=== PATIENT | male | born 1990 | race Caucasian/White ===

== ENCOUNTER 2017-05-15 10:43 | Emergency (ER) | payer OTHER ==
[2017-05-15] MEDS: 0.9 % SODIUM CHLORIDE 1,000 ML BAG IV ONE (11:51)
[2017-05-15 12:01] LABS: HEMATOCRIT 36.9 % (42.0-52.0); HEMOGLOBIN 12.4 gm/dl (14.0-18.0); MEAN CELL VOLUME 87.4 fl (81-97); MEAN CORPUSCULAR HGB CONC 33.6 g/dl (32-36); MEAN PLATELET VOLUME 9.9 fl (7.4-10.4); PLATELET COUNT 223 K/uL (130-400); RED BLOOD COUNT 4.22 M/uL (4.40-5.70); RED CELL DISTRIBUTION WIDTH 12.9 % (11.5-14.5); WHITE BLOOD COUNT W/O DIFF 11.1 K/uL (4.2-12.2)
[2017-05-15 12:06] LABS: MEAN CORPUSCULAR HEMOGLOBIN 29.3 pg (27-33)
[2017-05-15] MEDS: KETOROLAC 30 MG/ML VIAL IVP ONE (12:09)
[2017-05-15 12:13] LABS: ALBUMIN 4.9 gm/dL (3.5-5.0); ALKALINE PHOSPHATASE 65 U/L (38-126); ALT/SGPT 36 U/L (21-72); ANION GAP 12.6 (7-16); AST/SGOT 30 U/L (17-59); BILIRUBIN,TOTAL 1.16 mg/dL (0.2-1.3); BLOOD UREA NITROGEN 14 mg/dL (9-20); CARBON DIOXIDE 24.4 mmol/L (22-30); CREATININE 0.9 mg/dL (0.66-1.25); EST GLOMERULAR FILTRATION RATE > 60 ml/min; GLUCOSE,RANDOM 88 mg/dL (70-110); TOTAL PROTEIN 8.6 gm/dL (6.3-8.2)
--- NOTE | 2017-05-15 12:29 | Emergency Department Record ---
History of Present Illness - General Chief complaint: Throat foreign body Stated complaint: SORE THROAT Time Seen by Provider: 05/15/17 11:06 Source: Patient Mode of Arrival: Ambulatory - History of Present Illness Initial comments: sick 3 days and [facility] and thought to be a virus. fever tuesday night and body aches. complaint: Sore throat Onset/Timin -: Week(s) Location: Throat Severity: Moderate Severity scale (1-10): 9 Quality: Aching Consistency: Constant Improves with: None Worsens with: None - Related Data Previous Rx's Medication Instructions Recorded Cephalexin [Keflex] 500 mg PO TID #30 cap 05/15/17 Allergies Allergy/AdvReac Type Severity Reaction Status Date / Time No Known Drug Allergies Allergy Verified 05/15/17 11:01 Travel Screening - Travel/Exposure Within Last 30 Days Have you traveled within the last 30 days?: No - Travel/Exposure Within Last Year Have you traveled outside the [place] in the last year?: No - Additonal Travel Details Have you been exposed to anyone with a communicable illness?: No - Travel Symptoms Symptom Screening: None Review of Systems Reviewed: No additional complaints except as noted below Constitutional: Reports: As per HPI, Fever. Denies: Chills, Malaise, Night sweats, Weakness, Weight change Eyes: Reports: As per HPI. Denies: Eye discharge, Eye pain, Photophobia, Vision change ENT: Reports: As per HPI, Throat pain. Denies: Congestion, Dental pain, Ear pain, Epistaxis, Hearing loss Respiratory: Reports: As per HPI, Cough. Denies: Dyspnea, Hemoptysis, Stridor, Wheezes Cardiovascular: Reports: As per HPI. Denies: Arrhythmia, Chest pain, Dyspnea on exertion, Edema, Murmurs, Orthopnea, Palpitations, Paroxysmal nocturnal dyspnea, Rheumatic Fever, Syncope Endocrine: Reports: As per HPI. Denies: Fatigue, Heat or cold intolerance, Polydipsia, Polyuria Gastrointestinal: Reports: As per HPI. Denies: Abdominal pain, Constipation, Diarrhea, Hematemesis, Hematochezia, Melena, Nausea, Vomiting Genitourinary: Reports: As per HPI. Denies: Dysuria, Frequency, Hematuria, Incontinence, Retention, Testicular pain, Testicular mass, Urgency Musculoskeletal: Reports: As per HPI. Denies: Arthralgia, Back pain, Gout, Joint swelling, Myalgia, Neck pain Skin: Reports: As per HPI. Denies: Bruising, Change in color, Change in hair/ nails, Lesions, Pruritus, Rash Neurological: Reports: As per HPI. Denies: Abnormal gait, Confusion, Headache, Numbness, Paresthesias, Seizure, Tingling, Tremors, Vertigo, Weakness Psychiatric: Reports: As per HPI. Denies: Anxiety, Auditory hallucinations, Depression, Homicidal thoughts, Suicidal thoughts, Visual hallucinations Hematological/Lymphatic: Reports: As per HPI. 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 negative: External canal tenderness Nasal Exam: Normal inspection. negative: Discharge, Sinus tenderness Mouth exam: Normal external inspection, Tongue normal Teeth exam: Normal inspection. negative: Dental caries Throat exam: Tonsillar erythema, Tonsillar exudate - Neck Neck exam: Normal inspection, Full ROM. negative: Tenderness - Respiratory Respiratory exam: Normal lung sounds bilaterally. negative: Respiratory distress - Cardiovascular Cardiovascular Exam: Regular rate, Normal rhythm, Normal heart sounds - GI/Abdominal GI/Abdominal exam: Soft, Normal bowel sounds. negative: Tenderness - Rectal Rectal exam: Deferred - exam: Deferred - Extremities Extremities exam: Normal inspection, Full ROM, Normal capillary refill. negative: Tenderness - Back Back exam: Reports: Normal inspection, Full ROM. Denies: Muscle spasm, Rash noted, Tenderness - Neurological Neurological exam: Alert, Normal gait, Oriented X3, Reflexes normal - Psychiatric Psychiatric exam: Normal affect, Normal mood - Skin Skin exam: Dry, Intact, Normal color, Warm Course Vital Signs 05/15/17 10:54 Temperature 100.8 F H Pulse Rate 99 H Respiratory 17 Rate Blood Pressure 149/84 Pulse Ox 100 Medical Decision Making - Lab Data Result diagrams: 05/15/17 11:41 05/15/17 11:41 Lab Results 05/15/17 05/15/17 05/15/17 Range/Units 11:25 11:41 11:41 WBC 11.1 (4.2-12.2) K/uL RBC 4.22 L (4.40-5.70) M/uL Hgb 12.4 L (14.0-18.0) gm/dl Hct 36.9 L (42.0-52.0) % MCV 87.4 (81-97) fl MCH 29.3 (27-33) pg MCHC 33.6 (32-36) g/dl RDW 12.9 (11.5-14.5) % Plt Count 223 (130-400) K/uL MPV 9.9 (7.4-10.4) fl Neutrophils % 83.0 H (47-80) % Band Neutrophils % 0.0 (0-5) % Eosinophils % Not Reportable Basophils % Not Reportable Lymphocytes 6.0 L (16-45) % Monocytes 11.0 H (0-9) % Basophils 0.0 (0-6) % Eosinophil Count 0.0 (0-6) % Sodium 137 (136-145) mmol/L Potassium 4.3 (3.5-5.1) mmol/L Chloride 100 (98-107) mmol/L Carbon Dioxide 24.4 (22-30) mmol/L Anion Gap 12.6 (7-16) BUN 14 (9-20) mg/dL Creatinine 0.9 (0.66-1.25) mg/dL Estimated GFR > 60 ml/min Random Glucose 88 (70-110) mg/dL Calcium 9.5 (8.5-10.1) mg/dL Total Bilirubin 1.16 (0.2-1.3) mg/dL Direct Bilirubin 0.0 (0-0.3) mg/dL AST 30 (17-59) U/L ALT 36 (21-72) U/L Alkaline Phosphatase 65 (38-126) U/L Total Protein 8.6 H (6.3-8.2) gm/dL Albumin 4.9 (3.5-5.0) gm/dL Monoscreen (NEGATIVE) Group A Strep Screen Negative (NEGATIVE) 05/15/17 Range/Units 11:41 WBC (4.2-12.2) K/uL RBC (4.40-5.70) M/uL Hgb (14.0-18.0) gm/dl Hct (42.0-52.0) % MCV (81-97) fl MCH (27-33) pg MCHC (32-36) g/dl RDW (11.5-14.5) % Plt Count (130-400) K/uL MPV (7.4-10.4) fl Neutrophils % (47-80) % Band Neutrophils % (0-5) % Eosinophils % Basophils % Lymphocytes (16-45) % Monocytes (0-9) % Basophils (0-6) % Eosinophil Count (0-6) % Sodium (136-145) mmol/L Potassium (3.5-5.1) mmol/L Chloride (98-107) mmol/L Carbon Dioxide (22-30) mmol/L Anion Gap (7-16) BUN (9-20) mg/dL Creatinine (0.66-1.25) mg/dL Estimated GFR ml/min Random Glucose (70-110) mg/dL Calcium (8.5-10.1) mg/dL Total Bilirubin (0.2-1.3) mg/dL Direct Bilirubin (0-0.3) mg/dL AST (17-59) U/L ALT (21-72) U/L Alkaline Phosphatase (38-126) U/L Total Protein (6.3-8.2) gm/dL Albumin (3.5-5.0) gm/dL Monoscreen Negative (NEGATIVE) Group A Strep Screen (NEGATIVE) Disposition Clinical Impression: Pharyngitis Qualifiers: Pharyngitis/tonsillitis etiology: unspecified etiology Qualified Code(s): J02.9 - Acute pharyngitis, unspecified Disposition: Home, Self-Care Condition: (1) Good Instructions: Pharyngitis (ED) Additional Instructions: follow up with family in 2 days Prescriptions: Cephalexin [Keflex] 500 mg PO TID #30 cap Forms: Patient Portal Access Time of Disposition: 13:05 Quality - Quality Measures Quality Measures: N/A - Blood Pressure Screening Does Patient Have Any of the Following: No Blood Pressure Classification: Pre-Hypertensive BP Reading Systolic Measurement: 149 Diastolic Measurement: 84 Screening for High Blood Pressure: < Pre-Hypertensive BP, F/U Documented > [ G8950] Pre-Hypertensive Follow-up Interventions: Referral to alternative/primary care provider.
--- NOTE | 2017-05-17 09:51 | RADIOLOGY REPORT ---
EXAM: CHEST, TWO VIEWS HISTORY: PATIENT HAS COUGH AND FEVER. TECHNIQUE: Two views of the chest are provided without comparison studies. FINDINGS: The cardiomediastinal silhouette is within normal limits for size and contour. The madeline appear unremarkable. There is no radiographic evidence of a focal infiltrate or pleural effusion. IMPRESSION: NO RADIOGRAPHIC EVIDENCE OF AN ACUTE INTRATHORACIC PROCESS. JOB NUMBER: [id number] MTDD
== END 2017-05-15 13:23 | disposition home or self-care (01) ==
LOC: ER 10:43
DX: J02.9 Acute pharyngitis, unspecified (principal); R50.81 Fever presenting with conditions classified elsewhere; R05 Cough; R52 Pain, unspecified
CPT/HCPCS: 99284 ×2; 96374; 80076; 80048; 87880; 86308; 85027; 71020; J1885; J7030

== ENCOUNTER 2019-01-26 17:07 | Emergency (ER) | payer SELFPAY ==
[2019-01-26] MEDS ORDERED: LORAZEPAM 2 MG/ML VIAL IV ONE (17:17)
[2019-01-26] MEDS ORDERED: 0.9 % SODIUM CHLORIDE 1,000 ML BAG IV ONE (17:18)
--- NOTE | 2019-01-26 17:24 | Emergency Department Record ---
History of Present Illness - General Chief Complaint: Seizures Stated Complaint: SEZURE Time Seen by Provider: 01/26/19 17:16 Source: Patient, Family Mode of Arrival: EMS Limitations: Altered mental status - History of Present Illness Initial Comments: 28 yo male presents with possible seizure at home. He does not have a seizure history. His states he has had a couple months of odd facial twitches. He has been having some headache on and off the last two weeks. He laid down for nap and woke up around 4pm. He was talking to his and he had what she described as a seizure. He slightly injured his tongue and he did have urinary incontinence. On arrival he had a brief one minute episode of facial grimacing , clinched jaw, oxygen desaturation, with shaking lasting approximately one minute. The patient did not recall the seizure at home and has no recall of EMS providers in his home. His first recall of events was in the ambulance on the way to the hospital. No medications. Rare social alcohol. No chronic diseases. Denies drugs. PCP is Dr Cruz. 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 That was his last contact with his surgeons. MD Complaint: Possible seizure -: Hour(s) Description of Episode: Bladder incontinence Witnessed: Yes - by bystander, Yes - by EMS Seizure History: None Place: Home Associated Symptoms: Denies other symptoms Treatments Prior to Arrival: None - Related Data Allergies Allergy/AdvReac Type Severity Reaction Status Date / Time No Known Drug Allergies Allergy Unverified 07/05/18 14:32 Review of Systems Constitutional: Denies: Chills, Fever, Malaise, Weakness Eyes: Denies: Eye discharge, Eye pain ENT: Denies: Congestion, Throat pain Respiratory: Denies: Cough, Dyspnea, Hemoptysis, Wheezes Cardiovascular: Denies: Chest pain, Palpitations, Syncope Endocrine: Denies: Fatigue Gastrointestinal: Denies: Abdominal pain, Diarrhea, Nausea, Vomiting Genitourinary: Denies: Dysuria, Frequency, Hematuria Musculoskeletal: Denies: Arthralgia, Back pain, Myalgia Skin: Denies: Bruising, Change in color, Rash Neurological: Reports: Headache. 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 negative: Conjunctival injection - ENT ENT exam: Normal exam, Mucous membranes moist, Normal orophraynx Ear exam: Normal external inspection Nasal Exam: Normal inspection Mouth exam: negative: Normal external inspection, Tongue normal (slight left tongue abrasion) Teeth exam: Normal inspection Throat exam: Normal inspection - Neck Neck exam: Normal inspection. negative: Lymphadenopathy, Meningismus - Respiratory Respiratory exam: Normal lung sounds bilaterally. negative: Rhonchi, Stridor, Wheezes - Cardiovascular Cardiovascular Exam: Regular rate, Normal rhythm, Normal heart sounds - GI/Abdominal GI/Abdominal exam: Soft. negative: Tenderness - Rectal Rectal exam: Deferred - exam: Deferred - Extremities Extremities exam: Normal inspection. negative: Pedal edema - Back Back exam: Denies: CVA tenderness (R), CVA tenderness (L) - Neurological Neurological exam: Alert, CN II-XII intact, Oriented X3, Other (The neuro examination is after he was fully alert) - Psychiatric Psychiatric exam: Normal affect, Normal mood. negative: Agitated, Anxious - Skin Skin exam: Dry, Intact, Normal color, Warm Course - Reevaluation(s) Reevaluation #1: EKG #1: 17:23 Rate: 97 Rhythm: sinus Dubberly: right Intervals: normal ST segments: normal Prior: none 01/26/19 17:38 The labs were reviewed. No acute changes The UDS is negative The lactic acid is 3.0 The HCT demonstrates hypertrophic changes of the right frontal and temporal bones CW the fibrodysplasia. There is significant mass effect in the R frontal and temporal area with edema in R Frontal and temporal area. There is a 2cm hyperdense area in the medial right temporal lobe that may be the fibrodysplasia but acute hemorrhage is not conclusively ruled out. The patient and family were informed. The patient has not had contact with his prior surgeon since age 10. 01/26/19 18:55 [facility] was contacted for transfer. 01/26/19 19:[address] Davidson at [facility] ED. He accepts the patient for transfer Medical Decision Making - Lab Data Result diagrams: 01/26/19 16:50 01/26/19 16:50 Critical Care Time Critical Care Time: Yes Total Critical Care Time: 90 Disposition Disposition: Transfer Clinical Impression: Seizure, Fibrodysplasia ossificans congenita, Cerebral edema Disposition: Acute Care Hospital Transfer Transfer To: [facility] Reason For Transfer: New onset, fibrodysplasia, Cerebral Edema Accepting Physician: Lety Time Discussed w/Accepting Physician: 19:04 Condition: (3) Guarded Forms: Patient Portal Access Time of Disposition: 18:46 Quality - Quality Measures Quality Measures: N/A - Blood Pressure Screening Does Patient Have Any of the Following: No Blood Pressure Classification: Hypertensive Reading Systolic Measurement: 154 Diastolic Measurement: 105 Screening for High Blood Pressure: < Pre-Hypertensive BP, F/U Documented > [ G8950] Pre-Hypertensive Follow-up Interventions: Referral to alternative/primary care provider.
[2019-01-26 17:35] LABS: BASO % 0.6 % (0-6); EOS % 1.2 % (0-6); GRAN % 58.3 % (47-80); HEMATOCRIT 44.9 % (42.0-52.0); HEMOGLOBIN 15.2 gm/dl (14.0-18.0); LYMPH % 32.3 % (16-45); MEAN CORPUSCULAR HEMOGLOBIN 28.8 pg (27-33); MEAN CORPUSCULAR HGB CONC 33.9 g/dl (32-36); MEAN PLATELET VOLUME 9.3 fl (7.4-10.4); MONO % 7.6 % (0-9); PLATELET COUNT 361 K/uL (130-400); RED BLOOD COUNT 5.28 M/uL (4.40-5.70); RED CELL DISTRIBUTION WIDTH 12.8 % (11.5-14.5); WHITE BLOOD COUNT W/O DIFF 9.5 K/uL (4.2-12.2)
[2019-01-26 17:59] LABS: URINE BILIRUBIN NEGATIVE (NEGATIVE); URINE BLOOD MODERATE (NEGATIVE); URINE COLOR YELLOW; URINE GLUCOSE (UA) NEGATIVE (NEGATIVE); URINE KETONE NEGATIVE (NEGATIVE); URINE LEUKOCYTE ESTERASE NEGATIVE (NEGATIVE); URINE NITRITE NEGATIVE (NEGATIVE); URINE UROBILINOGEN 0.2 E.U./dL (0.20 - 1.00)
[2019-01-26 18:01] LABS: URINE APPEARANCE SL CLOUDY
[2019-01-26 18:02] LABS: AMPHETAMINE SCREEN URINE NOT DETECTED; BARBITURATE SCREEN URINE NOT DETECTED; BENZODIAZEPINE SCREEN URINE NOT DETECTED; COCAINE SCREEN URINE NOT DETECTED; METHADONE SCREEN URINE NOT DETECTED; METHAMPHETAMINE SCREEN NOT DETECTED; OPIATE SCREEN URINE NOT DETECTED; OXYCODONE SCREEN URINE NOT DETECTED; PHENCYCLIDINE SCREEN URINE NOT DETECTED; PROPOXYPHENE SCREEN URINE NOT DETECTED; THC SCREEN URINE NOT DETECTED; TRICYCLIC ANTIDEPRESSANT SCRN NOT DETECTED
[2019-01-26 18:10] LABS: URINE EPITHELIAL CELLS 0 - 2 (FEW); URINE WBC 0 - 2 (0-2/hpf)
[2019-01-26 18:11] LABS: URINE SPERM MODERATE
[2019-01-26] MEDS ORDERED: DEXAMETHASONE SOD PHOSPHATE 10MG/ML VIAL IVP ONE (18:21)
[2019-01-26 18:27] LABS: BLOOD UREA NITROGEN 12 mg/dL (6-20); CREATININE 0.8 mg/dL (0.7-1.2); EST GLOMERULAR FILTRATION RATE > 60 mL/min; TOTAL PROTEIN 8.1 g/dL (6.6-8.7)
[2019-01-26 18:31] LABS: GLUCOSE,RANDOM 102 mg/dL (74-109)
[2019-01-26 18:33] LABS: ALB/GLOB RATIO 1.7 (1.1-1.8); ALBUMIN 5.1 g/dL (4.0-5.0); ALKALINE PHOSPHATASE 69 U/L (40-129); ALT/SGPT 18 U/L (<41); AST/SGOT 21 U/L (10.0-50.0)
[2019-01-26] MEDS ORDERED: ACETAMINOPHEN 1,000 MG/100 ML BTL IVPB ONE (19:03)
[2019-01-26] MEDS ORDERED: ONDANSETRON HCL IV 4 MG/2 ML VIAL IVP ONE (19:16)
--- NOTE | 2019-01-29 13:38 | CT SCAN REPORT ---
EXAM: NONCONTRAST CT OF THE BRAIN HISTORY: SEIZURE LIKE ACTIVITY. PATIENT REPORTS HISTORY OF FIBROUS DYSPLASIA. TECHNIQUE: Noncontrast CT of the brain was obtained. Comparison: None. FINDINGS: There is extensive calvarial hypertrophy arising along the inner table of the right frontal and temporal bones with areas of associated ground glass opacity; appearance likely consistent with provided history of craniofacial fibrous dysplasia. Calvarial hypertrophy results in significant mass effect on the right temporal lobe and to a lesser extent the right frontal lobe. Areas of poorly defined parenchymal hypoattenuation n the right temporal lobe region. Right temporal and frontal lobe regions suggestive of edema. There is a rounded hyperdensity in the medial right temporal lob e abutting a segment of calvarial hypertrophy ( series 2 image 29) measuring 1.8 x 2.2 cm. This could represent focal acute blood product versus noncalcified component and fibrous dysplasia. A somewhat similar area with more mineralization is seen along the anterior midline frontal bone (series 2 image 49). There is partial effacement of the right suprasellar cistern related to calvarial hypertrophy. The ventricles are nondilated. There is effacement of the right lateral ventricle. Suggestion of facial post surgical changes, possibly prior reconstruction. Nonspecific soft tissue density thickening in the anterior right nasal passage. IMPRESSION: 1. 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 THERE IS MARKED HYPERTROPHY ALONG THE INNER TABLE OF THE RIGHT FRONTAL AND TEMPORAL BONES WITH SIGNIFICANT MASS EFFECT INVOLVING THE FRONTAL AND TEMPORAL LOBES. SUGGESTION OF PARENCHYMAL EDEMA IN THE RIGHT FRONTAL AND TEMPORAL LOBES. A ROUNDED FOCAL HYPERDENSITY IN THE MEDIAL RIGHT TEMPORAL LOBE MEASURES UP TO 2.2 CM; WHILE THIS COULD REPRESENT A NONCALCIFIED COMPONENT OF FIBROUS DYSPLASIA, ACUTE INTRAPARENCHYMAL HEMORRHAGE MAY HAVE A SIMILAR APPEARANCE. FOLLOW-UP IMAGING AND/OR COMPARISON WITH PRIOR CT'S IF AVAILABLE RECOMMENDED. 2. POST SURGICAL CHANGES IN THE FACIAL REGION. 3. NONSPECIFIC SOFT TISSUE DENSITY FOCUS IN THE ANTERIOR RIGHT NASAL PASSAGE WAY; RECOMMEND CORRELATION WITH DIRECT VISUALIZATION. 4. FINDINGS WERE DISCUSSED WITH ORDERING ED PROVIDER DR. JONAS AT APPROXIMATELY 6:25 P.M. ON 01/26/19. JOB NUMBER: [id number] [employer]
== END 2019-01-26 19:15 | disposition short-term general hospital (02) ==
LOC: ER 17:07
DX: M61.1 Myositis ossificans progressiva (principal); R56.9 Unspecified convulsions; G93.6 Cerebral edema; R51 Headache; R32 Unspecified urinary incontinence; R11.10 Vomiting, unspecified
CPT/HCPCS: 99291 ×2; 96365; 96375; 96361; 99292; 83605; 83735; 85025; 80053; 81001; 80305; 70450; 93005; 93010; J2405; J2060; J1100; J7030